=== PATIENT | male | born 1945 | race Caucasian/White ===

== ENCOUNTER → 2020-01-18 | Outpatient (CLI) | payer MEDICARE, OTHER ==
--- NOTE | 2020-01-18 14:40 | CARD ---
MR#: [id number] Date of Study: 01/18/2020 Ordering Physician: LUZ ELENA SU, Referring Physician: LUZ ELENA SU, Tech: APPROVED REPORT Loop recorder implantation: Indication: Syncope with prior history of ventricular arrhythmia Procedure details: The left chest was prepped and draped in usual sterile fashion after appropriate informed consent. 2 0 mL of 1% lidocaine was instilled in the left fourth parasternal space. Next, a barcoo bio monit or 3 loop recorder was implanted with the prespecified implanting tool after a 0.5 inch incision was made with a 15 blade scalpel. The loop recorder was deployed without any complications. The incisio n was then closed with Steri-Strips. No acute complications noted. Loop recorder serial #[id number], initial interrogation revealed excellent sensing parameters. <Conclusion> 1. Successful insertion of a bio monitor loop recorder for syncope and ventricular arrhythmia. Signed by : Luz Elena Su, Electronically Approved : 01/18/2020 14:39:34
== END ==
LOC: LINQ 10:55
PROVIDERS: ATTEND Internal Medicine Cardiovascular Disease
DX: R55 Syncope and collapse (principal); I49.8 Other specified cardiac arrhythmias
CPT/HCPCS: 33285; C1764